=== PATIENT | male | born 1980 | race Caucasian/White ===

== ENCOUNTER 2017-05-27 17:41 | Inpatient (IN) | payer MEDICAID ==
[~2017-05-27] VITALS: Ht 177.8 cm; Wt 75.4 kg
[2017-05-27] MEDS ORDERED: ALPR0.5T8 PO (18:49)
[2017-05-27 19:55] LABS: BASOPHILS % (AUTO) 0.1 % (0.0-2.0); EOSINOPHILS % (AUTO) 0.1 % (1.0-6.0); HEMATOCRIT 43.9 % (41-53); HEMOGLOBIN 15.1 g/dL (13.5-17.5); LYMPHOCYTES # (AUTO) 1.1 K/uL (1.0-4.8); LYMPHOCYTES % (AUTO) 11.9 % (22.0-44.0); MEAN CORPUSCULAR HEMOGLOBIN 36.7 pg (26.0-34.0); MEAN CORPUSCULAR HGB CONC 34.4 G/dL (31.0-37.0); MEAN CORPUSCULAR VOLUME 107 fL (80-100); MONOCYTES # (AUTO) 0.6 K/uL (0.1-1.0); MONOCYTES % (AUTO) 6.6 % (2.0-9.0); NEUTROPHILS # (AUTO) 7.7 K/uL (1.8-7.7); NEUTROPHILS % (AUTO) 81.3 % (40.0-70.0); PLATELET COUNT (AUTO) 116 K/uL (150-450); RED BLOOD CELL COUNT(AUTO) 4.11 MIL/uL (4.50-5.90); RED CELL DISTRIBUTION WIDTH 13.3 % (11.5-14.5); WHITE BLOOD COUNT (AUTO) 9.4 K/uL (4.5-11.0)
[2017-05-27 20:12] LABS: ALANINE AMINOTRANSFERASE 298 U/L (12-78); ALBUMIN 4.1 g/dL (3.4-5.0); ANION GAP 13 mmol/L (8-16); ASPARTATE AMINOTRANSFERASE 260 U/L (15-37); CARBON DIOXIDE 28 mmol/L (22-29); CHLORIDE 99 mmol/L (98-107); CREATININE 0.88 mg/dL (0.60-1.30); GLOMERULAR FILTR. RATE CALC > 60 mL/min (>60); SODIUM SERUM 140 mmol/L (136-145); TOTAL PROTEIN, SERUM 7.6 g/dL (6.4-8.2); UREA NITROGEN, BLOOD 6 mg/dL (7-18)
[2017-05-27 20:40] LABS: RBC MORPHOLOGY COMMENT ABNORMAL RBC MORPH
[2017-05-27] MEDS ORDERED: LORazepam 2 MG/ML VIAL IM ONE (21:45)
[2017-05-27] MEDS ORDERED: HALOPERIDOL LACTATE 5 MG/ML VIAL IM ONE (21:45)
[2017-05-27] MEDS ORDERED: DiphenhydrAMINE HCL 50 MG/ML VIAL IM ONE (21:45)
[2017-05-27] MEDS ORDERED: POTASSIUM CHLORIDE 20 MEQ ER TABLET PO ONE (21:45)
[2017-05-28] MEDS: HALOPERIDOL 5 MG TABLET PO PRN ×3 (00:43→17:18)
[2017-05-28] MEDS: ZOLPIDEM TARTRATE 10 MG TABLET PO PRN ×2 (00:43→20:49)
[2017-05-28 01:09] VITALS: BP 120/70
[2017-05-28] MEDS ORDERED: INFLUENZA VIRUS VACCINE QVS 2017-18 (3YR+)/PF 60 MCG/0.5 ML SYRINGE IM ONE (01:30)
[2017-05-28] MEDS: LORazepam 2 MG TABLET PO PRN ×3 (02:02→17:18)
[2017-05-28] MEDS ORDERED: CloNIDine HCL 0.1 MG TABLET PO PRN (09:00)
[2017-05-28] MEDS ORDERED: ONDANSETRON HCL 4 MG TABLET PO PRN (09:00)
[2017-05-28] MEDS ORDERED: POTASSIUM CHLORIDE 20 MEQ ER TABLET PO ONE (09:00)
[2017-05-28] MEDS ORDERED: MAG HYDROX/AL HYDROX/SIMETH ES 30 ML SUSPENSION UDCUP PO PRN (09:00)
[2017-05-28] MEDS ORDERED: BACITRACIN 28.4 GM OINTMENT TP PRN (09:00)
[2017-05-28] MEDS ORDERED: PETROLATUM,WHITE 71 GM JELLY TP PRN (09:00)
[2017-05-28] MEDS ORDERED: MAGNESIUM HYDROXIDE SUSPENSION 30 ML UDCUP PO PRN (09:00)
[2017-05-28] MEDS ORDERED: LOPERAMIDE HCL 2 MG CAPSULE PO PRN (09:00)
[2017-05-28] MEDS ORDERED: ALBUTEROL SULFATE HFA 90 MCG/PUFF 8 GM INHALER IH PRN (09:00)
[2017-05-28] MEDS ORDERED: BENZOCAINE/MENTHOL LOZENGE [8 LOZENGES/PACKET] MM PRN (09:15)
[2017-05-28] MEDS: OLANZapine 5 MG RAPDIS TABLET PO SCH ×2 (10:05→17:16)
[2017-05-29 00:05] VITALS: BP 127/87
[2017-05-29] MEDS: LORazepam 2 MG TABLET PO PRN ×3 (00:10→13:28)
[2017-05-29] MEDS: HALOPERIDOL 5 MG TABLET PO PRN ×3 (00:21→13:28)
[2017-05-29 07:29] LABS: CHOL/HDL RATIO 2.2 (4.2-7.3); POTASSIUM 3.3 mmol/L (3.5-5.1); THYROID STIMULATING HORMONE 0.76 uIU/mL (0.36-3.74)
[2017-05-29 08:05] VITALS: BP 150/95
[2017-05-29 08:19] VITALS: BP 150/95
[2017-05-29] MEDS: OLANZapine 5 MG RAPDIS TABLET PO SCH ×2 (08:31→19:29)
[2017-05-29] MEDS ORDERED: POTASSIUM CHLORIDE 20 MEQ ER TABLET PO ONE (13:45)
[2017-05-30 08:03] VITALS: BP 129/85
[2017-05-30] MEDS: OLANZapine 5 MG RAPDIS TABLET PO SCH ×2 (09:38→17:29)
[2017-05-30 10:22] LABS: HEPATITIS Bs ANTIGEN SCREEN P Negative (Negative); HEPATITIS C AB SCREEN <0.1 s/co ratio (0.0-0.9)
[2017-05-30] MEDS: IBUPROFEN 600 MG TABLET PO PRN (18:30)
[2017-05-31 06:10] VITALS: BP 103/61
[2017-05-31 08:03] VITALS: BP 122/76
[2017-05-31 08:04] VITALS: BP 122/79
[2017-05-31] MEDS: OLANZapine 5 MG RAPDIS TABLET PO SCH ×2 (08:40→17:57)
[2017-05-31] MEDS: IBUPROFEN 600 MG TABLET PO PRN (08:45)
[2017-06-01 08:23] VITALS: BP 120/65
[2017-06-01] MEDS: OLANZapine 5 MG RAPDIS TABLET PO SCH ×2 (09:22→17:12)
[2017-06-01] MEDS: ACETAMINOPHEN 325 MG TABLET PO PRN (13:12)
[2017-06-01 13:20] VITALS: BP 109/61
[2017-06-01 14:14] VITALS: BP 111/62
[2017-06-01 17:17] VITALS: BP 110/56
[2017-06-02 03:34] VITALS: BP 114/70
[2017-06-02] MEDS: LORazepam 2 MG TABLET PO PRN (03:36)
[2017-06-02] MEDS: OLANZapine 5 MG RAPDIS TABLET PO SCH ×2 (08:10→16:27)
[2017-06-02 08:17] VITALS: BP 108/69
[2017-06-02 16:33] VITALS: BP 103/69
[2017-06-02] MEDS: ACETAMINOPHEN 325 MG TABLET PO PRN (16:33)
[2017-06-02] MEDS: ZOLPIDEM TARTRATE 10 MG TABLET PO PRN (23:58)
[2017-06-03] MEDS: LORazepam 2 MG TABLET PO PRN (03:53)
[2017-06-03] MEDS: CHOLECALCIFEROL (VIT D3) 1,000 UNITS TABLET PO SCH (09:11)
[2017-06-03] MEDS: OLANZapine 5 MG RAPDIS TABLET PO SCH ×2 (09:12→16:23)
[2017-06-03 09:18] VITALS: BP 112/68
[2017-06-03 16:30] VITALS: BP 110/70
[2017-06-03] MEDS: ZOLPIDEM TARTRATE 10 MG TABLET PO PRN (21:51)
[2017-06-04] MEDS: OLANZapine 5 MG RAPDIS TABLET PO SCH ×2 (08:09→16:37)
[2017-06-04] MEDS: CHOLECALCIFEROL (VIT D3) 1,000 UNITS TABLET PO SCH (08:09)
[2017-06-04 08:24] VITALS: BP 126/74
[2017-06-04] MEDS: IBUPROFEN 600 MG TABLET PO PRN (09:48)
[2017-06-04 16:00] VITALS: BP 114/72
[2017-06-05] MEDS: ZOLPIDEM TARTRATE 10 MG TABLET PO PRN ×2 (02:40→23:03)
[2017-06-05] MEDS: LORazepam 2 MG TABLET PO PRN (02:40)
[2017-06-05 05:56] VITALS: BP 119/70
[2017-06-05 08:09] VITALS: BP 125/61
[2017-06-05] MEDS: OLANZapine 5 MG RAPDIS TABLET PO SCH ×2 (08:26→16:30)
[2017-06-05] MEDS: CHOLECALCIFEROL (VIT D3) 1,000 UNITS TABLET PO SCH (08:26)
[2017-06-05 16:35] VITALS: BP 119/73
[2017-06-05] MEDS: NICOTINE 21 MG/24 HOUR PATCH TD SCH (17:25)
[2017-06-06] MEDS: LORazepam 2 MG TABLET PO PRN (03:32)
[2017-06-06 05:22] VITALS: BP 121/75
[2017-06-06 08:07] VITALS: BP 132/74
[2017-06-06] MEDS: CHOLECALCIFEROL (VIT D3) 1,000 UNITS TABLET PO SCH (08:24)
[2017-06-06] MEDS: OLANZapine 5 MG RAPDIS TABLET PO SCH ×2 (08:24→16:38)
[2017-06-06] MEDS: NICOTINE 21 MG/24 HOUR PATCH TD SCH (08:25)
[2017-06-06] MEDS: IBUPROFEN 600 MG TABLET PO PRN (14:12)
[2017-06-06 16:18] VITALS: BP 115/66
[2017-06-06] MEDS: TraZODone HCL 100 MG TABLET PO SCH (20:10)
[2017-06-07 00:39] VITALS: BP 112/73
[2017-06-07] MEDS: LORazepam 2 MG TABLET PO PRN (00:41)
[2017-06-07 08:34] VITALS: BP 129/78
[2017-06-07] MEDS: NICOTINE 21 MG/24 HOUR PATCH TD SCH (08:54)
[2017-06-07] MEDS: CHOLECALCIFEROL (VIT D3) 1,000 UNITS TABLET PO SCH (08:55)
[2017-06-07] MEDS: OLANZapine 5 MG RAPDIS TABLET PO SCH ×2 (08:55→16:44)
[2017-06-07] MEDS: ACETAMINOPHEN 325 MG TABLET PO PRN (14:48)
[2017-06-07] MEDS: TraZODone HCL 100 MG TABLET PO SCH (20:22)
[2017-06-08] MEDS: LORazepam 2 MG TABLET PO PRN ×2 (00:41→23:44)
[2017-06-08 01:59] VITALS: BP 121/75
[2017-06-08] MEDS: IBUPROFEN 600 MG TABLET PO PRN ×2 (01:59→19:56)
[2017-06-08 08:29] VITALS: BP 143/94
[2017-06-08] MEDS: OLANZapine 5 MG RAPDIS TABLET PO SCH ×2 (08:34→16:41)
[2017-06-08] MEDS: CHOLECALCIFEROL (VIT D3) 1,000 UNITS TABLET PO SCH (08:34)
[2017-06-08] MEDS: NICOTINE 21 MG/24 HOUR PATCH TD SCH (08:34)
[2017-06-08 16:31] VITALS: BP 119/64
[2017-06-08 19:55] VITALS: BP 121/72
[2017-06-08] MEDS: TraZODone HCL 100 MG TABLET PO SCH (20:48)
[2017-06-08 20:55] VITALS: BP 118/72
[2017-06-09] MEDS: HALOPERIDOL 5 MG TABLET PO PRN ×2 (01:09→23:51)
[2017-06-09] MEDS: OLANZapine 5 MG RAPDIS TABLET PO SCH ×2 (08:17→16:05)
[2017-06-09] MEDS: CHOLECALCIFEROL (VIT D3) 1,000 UNITS TABLET PO SCH (08:17)
[2017-06-09] MEDS: NICOTINE 21 MG/24 HOUR PATCH TD SCH (08:18)
[2017-06-09 08:26] VITALS: BP 115/77
[2017-06-09] MEDS: IBUPROFEN 600 MG TABLET PO PRN (10:45)
[2017-06-09 16:00] VITALS: BP 123/73
[2017-06-09] MEDS: TraZODone HCL 100 MG TABLET PO SCH (20:20)
[2017-06-09] MEDS: LORazepam 2 MG TABLET PO PRN (23:52)
[2017-06-10] VITALS: BP 141/79
[2017-06-10] MEDS: CHOLECALCIFEROL (VIT D3) 1,000 UNITS TABLET PO SCH (08:04)
[2017-06-10] MEDS: NICOTINE 21 MG/24 HOUR PATCH TD SCH (08:04)
[2017-06-10] MEDS: OLANZapine 5 MG RAPDIS TABLET PO SCH ×2 (08:04→17:05)
[2017-06-10 08:32] VITALS: BP 106/61
[2017-06-10] MEDS: IBUPROFEN 600 MG TABLET PO PRN ×2 (11:30→23:43)
[2017-06-10 11:35] VITALS: BP 111/64
[2017-06-10 14:20] VITALS: BP 124/71
[2017-06-10 16:15] VITALS: BP 130/78
[2017-06-10] MEDS: TraZODone HCL 100 MG TABLET PO SCH (20:55)
[2017-06-10] MEDS: HALOPERIDOL 5 MG TABLET PO PRN (23:04)
[2017-06-10 23:43] VITALS: BP 112/67
[2017-06-10] MEDS: LORazepam 2 MG TABLET PO PRN (23:43)
[2017-06-11] MEDS: OLANZapine 5 MG RAPDIS TABLET PO SCH (09:28)
[2017-06-11] MEDS: CHOLECALCIFEROL (VIT D3) 1,000 UNITS TABLET PO SCH (09:28)
[2017-06-11] MEDS: NICOTINE 21 MG/24 HOUR PATCH TD SCH (11:13)
[2017-06-11] MEDS ORDERED: TRAZ-147 PO (12:37)
[2017-06-11] MEDS ORDERED: OLAN5TAB40 PO (12:38)
[2017-06-11] MEDS: IBUPROFEN 600 MG TABLET PO PRN (12:56)
[2017-06-11 16:00] VITALS: BP 121/71
== END 2017-06-11 16:15 | disposition home or self-care (01) | DRG 750 ==
LOC: EMS 17:45 → 3EC 22:31
PROVIDERS: ADMIT Psychiatry & Neurology Child & Adolescent Psychiatry; ATTEND Psychiatry & Neurology Child & Adolescent Psychiatry
DX: F25.9 Schizoaffective disorder, unspecified (principal); D69.6 Thrombocytopenia, unspecified; S01.81XA Laceration without foreign body of other part of head, initial encounter; E55.9 Vitamin D deficiency, unspecified; E87.6 Hypokalemia; F12.10 Cannabis abuse, uncomplicated; F17.210 Nicotine dependence, cigarettes, uncomplicated; R45.850 Homicidal ideations; F41.9 Anxiety disorder, unspecified; Y09 Assault by unspecified means; Y93.89 Activity, other specified; Y92.89 Other specified places as the place of occurrence of the external cause; Z59.0 Homelessness; Z79.899 Other long term (current) drug therapy
CPT/HCPCS: 80074; 82306; 84132; 84443; 87389; 96372; 99285; G0480; J1200; J1630; J2060